=== PATIENT | female | born 1955 | race Caucasian/White ===

== ENCOUNTER 2019-06-28 16:31 | Inpatient (IN) | payer MEDICARE, MEDICAID ==
[~2019-06-28] VITALS: Ht 162.6 cm; Wt 85.4 kg
[2019-06-28] MEDS ORDERED: TRAM50TA4 PO (16:37)
[2019-06-28 17:12] LABS: BASOPHILS % (AUTO) 0.3 % (0.0-2.0); EOSINOPHILS % (AUTO) 0.1 % (1.0-6.0); HEMATOCRIT 42.3 % (36-46); HEMOGLOBIN 14.2 g/dL (12.0-16.0); LYMPHOCYTES # (AUTO) 0.4 K/uL (1.0-4.8); LYMPHOCYTES % (AUTO) 5.2 % (22.0-44.0); MEAN CORPUSCULAR HGB CONC 33.6 G/dL (31.0-37.0); MEAN CORPUSCULAR VOLUME 92 fL (80-100); MONOCYTES # (AUTO) 0.2 K/uL (0.1-1.0); MONOCYTES % (AUTO) 2.3 % (2.0-9.0); NEUTROPHILS # (AUTO) 7.3 K/uL (1.8-7.7); PLATELET COUNT (AUTO) 190 K/uL (150-450); RED BLOOD CELL COUNT(AUTO) 4.59 MIL/uL (4.00-5.20); RED CELL DISTRIBUTION WIDTH 13.4 % (11.5-14.5)
[2019-06-28 17:14] LABS: NEUTROPHILS % (AUTO) 92.1 % (40.0-70.0)
[2019-06-28 17:24] LABS: ANION GAP 14 mmol/L (8-16); CALCIUM, TOTAL 9.4 mg/dL (8.8-10.5); CARBON DIOXIDE 25 mmol/L (22-29); CHLORIDE 100 mmol/L (98-107); CREATININE 1.37 mg/dL (0.60-1.30); GLOMERULAR FILTR. RATE CALC 39 mL/min (>60); GLUCOSE,RANDOM 223 mg/dL (70-110); POTASSIUM 4.1 mmol/L (3.5-5.1); SODIUM SERUM 139 mmol/L (136-145); UREA NITROGEN, BLOOD 29 mg/dL (7-18)
[2019-06-28 17:34] LABS: TROPONIN I < 0.02 ng/mL (0.00-0.05)
[2019-06-28 17:40] LABS: B-TYPE NATRIURETIC PEPTIDE 47 pg/mL (0-100)
[2019-06-28 17:43] LABS: AMMONIA < 10 umol/L (11-32)
[2019-06-28 17:48] LABS: ALANINE AMINOTRANSFERASE 62 U/L (12-78); ALBUMIN 4.4 g/dL (3.4-5.0); ALKALINE PHOSPHATASE 92 U/L (46-116); ASPARTATE AMINOTRANSFERASE 74 U/L (15-37); BILIRUBIN,TOTAL 0.9 mg/dL (0.1-1.0); CREATINE KINASE, TOTAL ONLY 874 U/L (26-192); LIPASE 51 U/L (73-393)
[2019-06-28 18:02] LABS: APPEARANCE,URINE CLEAR (CLEAR); BILIRUBIN,URINE NEGATIVE (NEGATIVE); GLUCOSE, URINE (UA) NEGATIVE (NEGATIVE); KETONES,URINE 40 mg/dL (NEGATIVE); LEUKOCYTE ESTERASE ,URINE NEGATIVE (NEGATIVE); NITRATE,URINE NEGATIVE (NEGATIVE); OCCULT BLOOD,URINE SMALL (NEGATIVE); PH,URINE 5.5 (5.0-8.0); PROTEIN,URINE POS 1+ (NEGATIVE); UROBILINOGEN,URINE 0.2 mg/dL (<=1.0)
[2019-06-28 18:32] LABS: AMPHET/METH SCREEN,URINE POSITIVE (NEGATIVE); BARBITURATE SCREEN, URINE NEGATIVE (NEGATIVE); BENZODIAZEPINES SCREEN,URINE POSITIVE (NEGATIVE); CANNABINOID SCREEN,URINE NEGATIVE (NEGATIVE); COCAINE SCREEN,URINE NEGATIVE (NEGATIVE); METHADONE SCREEN, URINE NEGATIVE (NEGATIVE); OPIATE SCREEN,URINE POSITIVE (NEGATIVE)
[2019-06-28 18:33] LABS: PHENCYCLIDINE SCREEN,URINE NEGATIVE (NEGATIVE)
[2019-06-28 19:26] LABS: BACTERIA,URINE Few /HPF (None Seen); RBC,URINE 0-2 /HPF (0-2); SQUAMOUS EPITHELIAL CELL,UR Many /LPF (None Seen); WBC,URINE 0-2 /HPF (0-5); YEAST,URINE Few /HPF (None Seen)
[2019-06-28] MEDS ORDERED: LORazepam 2 MG/ML VIAL IM ONE (19:45)
[2019-06-28] MEDS ORDERED: DiphenhydrAMINE HCL 50 MG/ML VIAL IM ONE ×2 (19:45→20:00)
[2019-06-28] MEDS ORDERED: HALOPERIDOL LACTATE 5 MG/ML VIAL IM ONE (19:45)
[2019-06-28] MEDS ORDERED: ZIPRASIDONE MESYLATE 20 MG/VIAL IM ONE (20:15)
[2019-06-28] MEDS ORDERED: LORazepam 2 MG TABLET PO PRN (21:00)
[2019-06-28] MEDS ORDERED: OLANZapine 5 MG TABLET PO PRN (21:00)
[2019-06-28] MEDS ORDERED: ZOLPIDEM TARTRATE 10 MG TABLET PO PRN (21:00)
[2019-06-29 00:34] VITALS: BP 128/72
[2019-06-29 00:42] VITALS: BP 128/72
[2019-06-29 02:20] LABS: GLUCOSE,POINT OF CARE 101 MG/DL (70-110)
[2019-06-29] MEDS ORDERED: INFLUENZA VIRUS VACCINE QVS 2019-20 (3YR+)/PF 60 MCG/0.5 ML SYRINGE IM ONE (07:00)
[2019-06-29 08:00] VITALS: BP 143/93
[2019-06-29 08:06] VITALS: BP 143/95
[2019-06-29] MEDS: TraMADol HCL 50 MG TABLET PO PRN ×2 (08:06→17:55)
[2019-06-29] MEDS ORDERED: CloNIDine HCL 0.1 MG TABLET PO PRN (08:45)
[2019-06-29] MEDS ORDERED: PETROLATUM,WHITE 28 GM JELLY TP PRN (08:45)
[2019-06-29] MEDS ORDERED: NICOTINE 14 MG/24 HOUR PATCH TD PRN (08:45)
[2019-06-29] MEDS ORDERED: ALBUTEROL SULFATE HFA 90 MCG/PUFF 8 GM INHALER IH PRN (08:45)
[2019-06-29] MEDS ORDERED: LOPERAMIDE HCL 2 MG CAPSULE PO PRN (08:45)
[2019-06-29] MEDS ORDERED: MAGNESIUM HYDROXIDE SUSPENSION 30 ML UDCUP PO PRN (08:45)
[2019-06-29] MEDS ORDERED: ONDANSETRON HCL 4 MG TABLET PO PRN (08:45)
[2019-06-29] MEDS ORDERED: DOCUSATE SODIUM 100 MG CAPSULE PO PRN (08:45)
[2019-06-29] MEDS ORDERED: MAG HYDROX/AL HYDROX/SIMETH ES 30 ML SUSPENSION UDCUP PO PRN (08:45)
[2019-06-29] MEDS ORDERED: ACETAMINOPHEN 325 MG TABLET PO PRN (08:45)
[2019-06-29] MEDS: IBUPROFEN 400 MG TABLET PO PRN (10:24)
[2019-06-29 16:00] VITALS: BP 101/74
[2019-06-29 17:54] VITALS: BP 110/72
[2019-06-29] MEDS: QUEtiapine FUMARATE 200 MG TABLET PO SCH (20:16)
[2019-06-30 08:39] VITALS: BP 128/84
[2019-06-30] MEDS: PARoxetine HCL 20 MG TABLET PO SCH (08:42)
[2019-06-30] MEDS: TraMADol HCL 50 MG TABLET PO PRN ×2 (08:43→16:42)
[2019-06-30] MEDS: GuaiFENesin/D-METHORPHAN [SUGAR-FREE] 200-20MG/10 ML SYRUP UDCUP PO PRN (09:54)
[2019-06-30] MEDS: IBUPROFEN 400 MG TABLET PO PRN (09:55)
[2019-06-30] MEDS: GABAPENTIN 300 MG CAPSULE PO SCH ×2 (12:25→16:18)
[2019-06-30 16:10] VITALS: BP 115/77
[2019-06-30 16:41] VITALS: BP 119/62
[2019-06-30] MEDS: NICOTINE 7 MG/24 HOUR PATCH TD SCH (18:15)
[2019-06-30] MEDS: QUEtiapine FUMARATE 200 MG TABLET PO SCH (20:05)
[2019-07-01 04:56] VITALS: BP 138/77
[2019-07-01] MEDS: PARoxetine HCL 20 MG TABLET PO SCH (09:20)
[2019-07-01] MEDS: GABAPENTIN 300 MG CAPSULE PO SCH ×2 (09:20→16:40)
[2019-07-01] MEDS: GuaiFENesin/D-METHORPHAN [SUGAR-FREE] 200-20MG/10 ML SYRUP UDCUP PO PRN (09:21)
[2019-07-01] MEDS: NICOTINE 7 MG/24 HOUR PATCH TD SCH (09:21)
[2019-07-01] MEDS: TraMADol HCL 50 MG TABLET PO PRN ×3 (09:27→23:58)
[2019-07-01 10:34] VITALS: BP 113/61
[2019-07-01 15:52] LABS: INFLUENZA TYPE A NEGATIVE FOR TYPE A (NEGATIVE); INFLUENZA TYPE B NEGATIVE FOR TYPE B (NEGATIVE)
[2019-07-01 16:05] VITALS: BP 125/66
[2019-07-01 16:36] VITALS: BP 125/66
[2019-07-01] MEDS: QUEtiapine FUMARATE 200 MG TABLET PO SCH (20:23)
[2019-07-01 23:55] VITALS: BP 117/90
[2019-07-02 02:20] VITALS: BP 117/91
[2019-07-02] MEDS: TraMADol HCL 50 MG TABLET PO PRN ×2 (08:21→15:31)
[2019-07-02] MEDS: NICOTINE 7 MG/24 HOUR PATCH TD SCH (08:22)
[2019-07-02] MEDS: GABAPENTIN 300 MG CAPSULE PO SCH ×2 (08:22→16:35)
[2019-07-02] MEDS: PARoxetine HCL 20 MG TABLET PO SCH (08:22)
[2019-07-02 08:35] VITALS: BP 123/71
[2019-07-02 16:37] VITALS: BP 161/72
[2019-07-02] MEDS: QUEtiapine FUMARATE 200 MG TABLET PO SCH (20:15)
[2019-07-03] MEDS: TraMADol HCL 50 MG TABLET PO PRN ×2 (05:04→11:05)
[2019-07-03 05:05] VITALS: BP 134/97
[2019-07-03 07:16] LABS: BASOPHILS % (AUTO) 0.4 % (0.0-2.0); HEMATOCRIT 41.4 % (36-46); HEMOGLOBIN 13.8 g/dL (12.0-16.0); LYMPHOCYTES # (AUTO) 1.8 K/uL (1.0-4.8); MEAN CORPUSCULAR HEMOGLOBIN 30.8 pg (26.0-34.0); MEAN CORPUSCULAR HGB CONC 33.4 G/dL (31.0-37.0); MEAN CORPUSCULAR VOLUME 92 fL (80-100); MONOCYTES # (AUTO) 0.5 K/uL (0.1-1.0); MONOCYTES % (AUTO) 6.8 % (2.0-9.0); NEUTROPHILS # (AUTO) 5.2 K/uL (1.8-7.7); NEUTROPHILS % (AUTO) 67.8 % (40.0-70.0); PLATELET COUNT (AUTO) 187 K/uL (150-450); RED BLOOD CELL COUNT(AUTO) 4.48 MIL/uL (4.00-5.20); RED CELL DISTRIBUTION WIDTH 13.4 % (11.5-14.5)
[2019-07-03 07:38] LABS: ANION GAP 10 mmol/L (8-16); CALCIUM, TOTAL 9.4 mg/dL (8.8-10.5); CARBON DIOXIDE 27 mmol/L (22-29); CHLORIDE 106 mmol/L (98-107); CREATININE 0.78 mg/dL (0.60-1.30); GLOMERULAR FILTR. RATE CALC > 60 mL/min (>60); GLUCOSE,RANDOM 92 mg/dL (70-110); POTASSIUM 4.2 mmol/L (3.5-5.1); SODIUM SERUM 143 mmol/L (136-145); UREA NITROGEN, BLOOD 10 mg/dL (7-18)
[2019-07-03] MEDS: NICOTINE 7 MG/24 HOUR PATCH TD SCH (09:00)
[2019-07-03] MEDS: PARoxetine HCL 20 MG TABLET PO SCH (09:06)
[2019-07-03] MEDS: GABAPENTIN 300 MG CAPSULE PO SCH (09:06)
[2019-07-03 11:05] VITALS: BP 132/87
[2019-07-03] MEDS ORDERED: QUET200T PO (13:14)
[2019-07-03] MEDS ORDERED: PARO20TA24 PO (13:14)
[2019-07-03] MEDS ORDERED: GABA-531 PO (13:14)
== END 2019-07-03 15:00 | disposition home or self-care (01) | DRG 881 ==
LOC: EDBD 16:31 → EMS 16:31 → 3EI 22:31 → 3EX 22:31 → UNDOADMIN 22:31
PROVIDERS: ADMIT Psychiatry & Neurology Psychiatry; ATTEND Psychiatry & Neurology Psychiatry
DX: F32.9 Major depressive disorder, single episode, unspecified (principal); N17.9 Acute kidney failure, unspecified; T40.2X1A Poisoning by other opioids, accidental (unintentional), initial encounter; M62.82 Rhabdomyolysis; F10.10 Alcohol abuse, uncomplicated; Y90.9 Presence of alcohol in blood, level not specified; F15.10 Other stimulant abuse, uncomplicated; F14.90 Cocaine use, unspecified, uncomplicated; R74.0 Nonspecific elevation of levels of transaminase and lactic acid dehydrogenase [LDH]; R73.9 Hyperglycemia, unspecified; F19.10 Other psychoactive substance abuse, uncomplicated; Y92.89 Other specified places as the place of occurrence of the external cause; Z87.891 Personal history of nicotine dependence; Z28.21 Immunization not carried out because of patient refusal
CPT/HCPCS: 83605; 87040; 87804; 93005; 99291; G0378; G0480; J1200; J1630; J2060; J3486